=== PATIENT | male | born 1975 | race Caucasian/White ===

== ENCOUNTER 2020-02-16 14:56 | Emergency (ER) | payer SELFPAY ==
[~2020-02-16] VITALS: Ht 175.3 cm; Wt 77.1 kg
[2020-02-16] MEDS ORDERED: VALTREX1000 MG PO (17:29)
[2020-02-16] MEDS ORDERED: IBUPROFEN600 MG PO (17:29)
[2020-02-16] MEDS ORDERED: NEURONTIN300 MG PO (17:29)
== END 2020-02-16 17:40 | disposition home or self-care (01) ==
LOC: ED 14:56
DX: B02.9 Zoster without complications (principal); F17.200 Nicotine dependence, unspecified, uncomplicated; Z88.0 Allergy status to penicillin
CPT/HCPCS: 81001; 99283